=== PATIENT | female | born 1960 | race Caucasian/White ===

== ENCOUNTER 2016-11-20 15:30 | Emergency (ER) | payer OTHER ==
--- NOTE | 2016-11-20 15:52 | PDOC ---
Dyspnea HPI - General Chief Complaint: Dyspnea Stated Complaint: SHORTNESS OF BREATH Date Seen by Provider: 11/20/16 Time Seen by Provider: 15:48 Source: POSITIVE: Patient Exam Limitations: POSITIVE: No limitations Treatment Prior to Arrival: REPORTS: None Nurse's Notes Reviewed & Considered: Yes - History of Present Illness Initial Comments: Corina is a 56-year-old female with a history of emphysema who presents to the emergency department with swelling in her legs. States that this has been going on for 1 week. Right side is somewhat bigger than the left side. Patient reports pain predominantly in the left leg. Patient also describes dyspnea. She does have orthopnea. She has had a cough over the last week. The cough is predominantly nonproductive. Patient reports that she does take her Lasix. She is not sure she's ever been diagnosed with heart failure in the past. No fevers or chills. She describes the chest discomfort as central chest. Pressure-like. The neck for the last 2-3 days. No specific exacerbating or relieving factors. Mild in severity. - Patient Home Medications Home Medications: Home Medications Albuterol Neb Soln 0.083% 1 vial NEB QID #360 vial 12/18/15 Albuterol Sulfate [Proair Hfa] 1 - 2 inh INH QID PRN #3 each 12/18/15 Estrogens, Conjugated Tab [Premarin Tab] 1 tab PO DAILY #90 tab 12/18/15 Fluoxetine HCl 1 cap PO QD #90 cap 12/18/15 Formoterol Fumarate [Perforomist] 1 vial NEB BID #180 vial 12/18/15 Furosemide 1 tab PO BID #180 tab 12/18/15 Lisinopril 1 tab PO DAILY #90 tab 12/18/15 Montelukast Sodium 1 tab PO QHS #90 tab 12/18/15 Potassium Chloride 1 tab PO BID #180 tab 12/18/15 Simvastatin [Zocor] 1 tab PO QHS PRN #90 tab 12/18/15 Oxycodone HCl/Acetaminophen [Oxycodone-Acetaminophen 10-325] 1 tab PO 5XD #150 tab 08/11/16 Lorazepam 1 tab PO TID PRN #90 tab 09/29/16 Gabapentin 300 mg PO TID #270 cap 10/30/16 Ibuprofen 800 mg PO TID #90 tab 10/30/16 Azithromycin 250 mg PO DAILY #4 tab 11/20/16 - Patient Allergies Allergies/Adverse Reactions: Allergies Allergy/AdvReac Type Severity Reaction Status Date / Time aspirin [Aspirin] Allergy Severe ANAPHLAXIS Verified 11/20/16 15:42 codeine [Codeine] Allergy Severe HIVES Verified 11/20/16 15:42 amoxicillin Allergy Intermediate SWELLING Verified 11/20/16 15:42 iodine [Iodine] Allergy Intermediate HIVES Verified 11/20/16 15:42 doxycycline AdvReac Intermediate nausea Verified 11/20/16 15:42 PAIN CONTRACT AdvReac Intermediate NOT Uncoded 11/20/16 15:42 APPLICABLE Past Medical History - heen HEENT History: Denies History Cardiovascular History: Hyperlipidemia Respiratory History: COPD, Emphysema, Sleep Apnea, Home Oxygen Use, Home CPAP Use Additional Respiratory History: HX OF PULMONARY EDEMA Gastrointestinal History: GERD Additional Gastrointestinal History: BARRETTS ESOPHAGUS/ DYSPHAGIA/ ACUTE GASTRIC ULCER Genitourinary History: Denies History Additional Genitourinary History: Bladder repair Endocrine History: Denies History Additional Endocrine History: Possible DM Musculoskeletal History: Other (please comment) Prosthesis or Implant: No Additional Musculoskeletal History: CHRONIC BACK PAIN/ PAIN CONTRACT. RESTLESS LEG SYND Neurological History: Denies History Blood Disorders: Anemia Psychiatric History: Anixety Disorders History of Sexually Transmitted Diseases: No Female Reproductive History: Denies History Cancer History: Denies History In Past Year Been Physically Harmed or Verbally Threatened: No History of MDRO: No History of Other Communicable Diseases: Yes (states she has chronic strep) Tobacco Use: Current Every Day Smoker Alcohol Use: None Substance Use Type: None Previous Surgical History: Yes Type / Date of Surgery: ABD WALL HERNIA/ APPY/ BRONCHOSCOPY, SEVERAL/ C SECTION / EGD, EGD WITH DILATION/ BREAST SX/ TUMMY TUCK Anesthesia Reactions: No Malignant Hyperthermia: No Significant Family History: Heart disease, Cancer, Diabetes Past Medical History Reviewed: Reviewed - No Changes ROS - Limitations ROS Limitations: No Limitations Constitution: DENIES: Chills, Fever Cardiovascular: REPORTS: Chest Pain, Edema Respiratory: REPORTS: Cough Non Productive, Shortness Of Breath Neurological: REPORTS: Denies Neuro Symptoms Gastrointestinal: REPORTS: Denies GI Symptoms Endocrine: REPORTS: Denies Symptoms Musculoskeletal: REPORTS: Calf Pain Genitourinary: REPORTS: Denies Symptoms Eyes: REPORTS: Denies Symptoms ENT: REPORTS: Denies Symptoms Skin: REPORTS: Denies Skin Symptoms Lympathic: REPORTS: Denies Lympathic Symptoms Immunologic: POSITIVE: Denies Symptoms Psychiatric: POSITIVE: Denies Psych Symptoms Dyspnea Physical Exam - General Appearance General Appearance: REPORTS: Alert, Cooperative, Other (Mild dyspnea) - HEENT HEENT: POSITIVE: Head Inspection Nml, Eyes Inspection Nml, Ears Inspection Nml, Nose Inspection Nml, Oral/Dental Inspect. Nml - Neck Neck: DENIES: JVD Present - Respiratory Respiratory: REPORTS: Other (Rough crackles throughout lungs. No foster wheezes. Breath sounds equal.) - Cardiovascular Cardiovascular: REPORTS: Regular Rate and Rhythm, Heart Sounds Normal - Abdomen Abdomen: Soft: (All Quadrants), Normal Bowel Sounds: (All Quadrants), Denies Tenderness: (All Quadrants), No Splenomegaly: (All Quadrants), No Hepatomegaly: (All Quadrants) - Skin Skin: REPORTS: Warm, Dry - Extremities Extremity: Non-Tender: (RLE), Normal ROM: (RLE), (LLE), Edema / Swelling: (RLE) , (LLE), Calf Tenderness: (LLE) - Neurological / Psychological Neurological: POSITIVE: Affect Apporpriate, Oriented X3 Dyspnea Progress - Results Reviewed by me Xrays/CTs/US Reviewed by me: Yes Lab Results Reviewed: Yes Lab Results:: Laboratory Results 11/20/16 Range/Units 15:56 WBC 9.99 (4.8-10.8) 10^3/uL RBC 3.66 L (4.20-5.40) 10^6/uL Hgb 10.6 L (12.0-16.0) g/dL Hct 35.0 L (37.0-47.0) % MCV 95.6 (81-99) FL MCH 29.0 (27-31) PG MCHC 30.3 L (33-37) g/dL RDW Std Deviation 44.9 (39-50) fL RDW Coeff of Tana 13.4 (11.5-14.5) % Plt Count 407 H (140-350) 10*3/uL MPV 9.2 (7.4-12.2) FL Immature Gran % (Auto) 0.3 (0-5) % Neut % (Auto) 70.5 (50-80) % Lymph % (Auto) 20.2 (10-50) % [place] % (Auto) 6.0 (5-15) % Eos % (Auto) 2.7 (0-8) % Baso % (Auto) 0.3 (0-1) % Immature Gran # (Auto) 0.03 10*3/UL Neut # (Auto) 7.04 10*3/UL Lymph # (Auto) 2.02 10*3/uL [place] # (Auto) 0.60 (0.3-0.8) 10*3/UL Eos # (Auto) 0.27 10*3/UL Baso # (Auto) 0.03 10*3/UL WBC Morphology Comment Normal morphology (NORM) Plt Morphology Comment Normal morphology (NORM) RBC Morph Comment Normal morphology (NORM) Sodium 138 (135-145) meq/L Potassium 3.5 L (3.8-5.2) meq/L Chloride 90 L (98-112) meq/L Carbon Dioxide 42 H (23-33) meq/L Anion Gap 6 (5-20) BUN 13 (7-22) mg/dL Creatinine 0.6 (0.50-1.20) mg/dL Estimated GFR > 60 (>60 ml/min/1.73m(2)) BUN/Creatinine Ratio 21.66 H (6-20) Glucose 84 (78-110) mg/dL Calculated Osmolality 284.0 (267-292) mOsm/kg Calcium 9.1 (8.7-10.7) mg/dL Total Bilirubin 0.6 (0.3-1.2) mg/dL AST 13 (8-39) IU/L ALT 22 (9-52) IU/L Alkaline Phosphatase 103 (38-126) IU/L Troponin I < 0.012 (< 0.040) ng/mL NT-Pro-B Natriuret Pep 882 H (0-125) PG/ML Total Protein 7.4 (6.1-8.0) g/dL Albumin 3.3 L (3.5-4.8) g/dL Globulin 4.1 (2.50-4.10) g/dL Albumin/Globulin Ratio 0.80 L (1.3-2.0) mg/g EKG Interpreted/Reviewed By Me:: Yes (Similar morphology to prior. isolated ST elevation in lead III) - Patient's Progress Status: POSITIVE: Improved MDM / ED Course: Patient is a 56 y/o female who presents with edema in the legs. Vitals are unremarkable. Examination demonstrates edema in the lower extremities with coarse lung sounds. Differential diagnosis includes but is not limited to COPD exacerbation, lung cancer, DVT, heart failure, renal failure. Labs are notable for elevation in BNP, which is higher than before. EKG is similar to prior and troponin is negative, making ACS less likely. CXR was abnormal which does appears to show an enlarging mass that is concerning for neoplasm. There is possible a infectious aspect as well, though WBC is in the normal range. I did discuss with patient possibly staying in the hospital for evaluation, she prefers to be discharged home at this time. Will have her follow up closely with her primary care provider. She was treated here with 80mg lasix and azithromycin. Patient Care Time - Estimated PCT Patient Care Time (In Minutes): 35 Vital Signs - Recent Vital Signs Vital Signs: Vital Signs (Last 8 hours) Temp Pulse Resp BP Pulse Ox 11/20/16 15:45 97.1 F 65 28 H 136/78 94 Discharge Clinical Impression: Edema, Lung mass Discharge Disposition: Discharged to Home Condition: Good Prescriptions / Orders: Azithromycin 250 mg PO DAILY #4 tab Patient Instructions Given at Discharge: Emphysema (ED), Edema (ED) Additional Instructions: Thank you for coming to the emergency department. Please follow up with your primary care provider for re-evaluation of what appears like a lung mass. We discussed admitting you to the hospital but would prefer to go home, if you have any worsening symptoms please return to the emergency department. Please try to keep your legs elevated. Take antibiotics as prescribed. Follow Up With: BRENDA WADSWORTH [Primary Care Provider] -
[2016-11-20] MEDS: NORMAL SALINE 10 ML SYRINGE FLUSH IVP PRN ×2 (15:56→18:02)
[2016-11-20 16:01] VITALS: TEMP 97.1
[2016-11-20 16:03] LABS: BASOPHILS # (AUTO) 0.03 10*3/UL; BASOPHILS % (AUTO) 0.3 % (0-1); EOSINOPHILS % (AUTO) 2.7 % (0-8); HEMOGLOBIN 10.6 g/dL (12.0-16.0); IMM GRAN % (AUTO) 0.3 % (0-5); IMM GRAN# (AUTO) 0.03 10*3/UL; LYMPHOCYTES # (AUTO) 2.02 10*3/uL; LYMPHOCYTES % (AUTO) 20.2 % (10-50); MEAN CORPUSCULAR HGB CONC 30.3 g/dL (33-37); MEAN PLATELET VOLUME 9.2 FL (7.4-12.2); NEUTROPHILS # (AUTO) 7.04 10*3/UL; NEUTROPHILS % (AUTO) 70.5 % (50-80); RDW COEFFICIENT OF VARIATION 13.4 % (11.5-14.5); RED BLOOD COUNT 3.66 10^6/uL (4.20-5.40); WHITE BLOOD COUNT 9.99 10^3/uL (4.8-10.8)
[2016-11-20 16:04] LABS: PLATELET MORPHOLOGY COMMENT NORMAL MORPHOLOGY (NORM)
[2016-11-20 16:13] LABS: ASPARTATE AMINO TRANSFERASE 13 IU/L (8-39); BILIRUBIN,TOTAL 0.6 mg/dL (0.3-1.2); BLOOD UREA NITROGEN 13 mg/dL (7-22); BUN/CREATININE RATIO 21.66 (6-20); CALCIUM 9.1 mg/dL (8.7-10.7); CHLORIDE 90 meq/L (98-112); CREATININE 0.6 mg/dL (0.50-1.20); EST GLOMERULAR FILTRATION > 60 (>60 ml/min/1.73m(2)); GLUCOSE 84 mg/dL (78-110); POTASSIUM 3.5 meq/L (3.8-5.2); SODIUM 138 meq/L (135-145); TOTAL PROTEIN 7.4 g/dL (6.1-8.0)
[2016-11-20 16:22] LABS: NT-PRO BNP 882 PG/ML (0-125)
--- NOTE | 2016-11-20 16:45 | DI ---
History: Chest pain and dyspnea. Procedure: 2 view study. Prior examination, chest CT done 06/24/16. Findings: Findings are again consistent with an element of emphysema. There are some bulla in the lef t lung base and possible fluid accumulation with blunting of the costophrenic angle. Heart size is to p normal. There is an ill-defined area of increased density in the right lung base involving mostly the middle lobe, obscuring the right cardiac border with some nodular component progressing at the costophrenic angle laterally. Lateral view shows bony structures are intact. Impression: Some progression of the infiltrative process in the right side which may be a combination of infectious process and neoplasia. The infiltration in the right lung base has progressed and may represent adenocarcinoma. Consider bronchoscopy or repeat CT scan of the chest. There is also an element of emphysema present with probable small left pleural effusion
--- NOTE | 2016-11-20 17:01 | EKG ---
[address] [address] Measurements Intervals [place] Rate: 63 P: 1 [place]: 171 QRS: 111 QRSD: 102 T: 62 QT: 457 QTc: 464 Interpretive Statements SINUS RHYTHM WITH OCCASIONAL SUPRAVENTRICULAR PREMATURE COMPLEXES INCOMPLETE RIGHT BUNDLE BRANCH BLOCK RIGHT VENTRICULAR HYPERTROPHY AND ST-T CHANGE Compared to ECG 08/27/2014 13:14:05 ST (T wave) deviation now present T-wave abnormality no longer present Possible ischemia no longer present Electronically Signed On 11-21-16 14:39:44 MST by Taye Moss [id number]
--- NOTE | 2016-11-20 17:38 | DI ---
HISTORY: Edema and pain. History of COPD. COMPARISON: None available. TECHNIQUE: Venous sonographic images were obtained of the bilateral lower extremities and submitted for interpretation. FINDINGS: No evidence of venous thrombus in the bilateral lower extremity veins in the imaged field. IMPRESSION: 1. No evidence of venous thrombus in the bilateral lower extremity veins in the imaged field. NOTE: The interpreting Radiologist was not present at the time of ultrasound interrogation.
[2016-11-20] MEDS ORDERED: FUROSEMIDE 10 MG/1 ML - 4 ML IVP ONE (17:39)
[2016-11-20] MEDS ORDERED: AZITHROMYCIN 250 MG TABLET PO ONE (17:39)
[2016-11-20 18:13] VITALS: RESP 22
== END 2016-11-20 18:14 | disposition home or self-care (01) ==
LOC: ER 15:30
DX: R60.9 Edema, unspecified (principal); R91.8 Other nonspecific abnormal finding of lung field; R07.9 Chest pain, unspecified
CPT/HCPCS: 71020; 80053; 83880; 84484; 85025; 93005; 93010; 93970; 96374; 99284; J1940

== ENCOUNTER → 2016-12-26 | Outpatient (CLI) | payer OTHER ==
--- NOTE | 2016-12-26 17:02 | DI ---
CT CHEST W/O CONTRAST,12/26/2016 1:06 PM: Clinical History: Pulmonary nodule Previous Exam: June 24, 2016 Findings: Multiple helically acquired CT images are obtained through the chest without contrast, and demonstrat e some worsening COPD bilaterally. The 5 mm nodule seen on the prior exam within the left lower lobe posteriorly is unchanged from the p rior exam. The airspace disease seen within the right middle lobe is slightly less conspicuous, but there is sti ll some airspace disease with air bronchograms in the right middle lobe. The lung apices demonstrates some worsening scarring as do the lung bases. There is still some enlargement of the pulmonary arteries and multiple coronary artery calcifications . The upper abdomen is unremarkable and unchanged from the prior exam. The thyroid is unremarkable. Impression: Airspace disease within the right middle lobe essentially unchanged, but given the fact that this pat ient appears to be at high risk, recommend continued followup as a mass within the atelectasis in the right middle lobe cannot completely excluded. PET scan may be helpful to evaluate the presence or ab sence of a right middle lobe mass. Diffuse COPD.
== END ==
LOC: CT 13:04
PROVIDERS: ATTEND Internal Medicine
DX: R91.1 Solitary pulmonary nodule (principal); J44.9 Chronic obstructive pulmonary disease, unspecified
CPT/HCPCS: 71250

== ENCOUNTER → 2017-03-09 | Outpatient (CLI) | payer OTHER ==
[2017-03-09 17:20] LABS: BASOPHILS # (AUTO) 0.03 10*3/UL; BASOPHILS % (AUTO) 0.3 % (0-1); EOSINOPHILS # (AUTO) 0.36 10*3/UL; EOSINOPHILS % (AUTO) 3.4 % (0-8); HEMOGLOBIN 14.5 g/dL (12.0-16.0); LYMPHOCYTES # (AUTO) 3.19 10*3/uL; MEAN CORPUSCULAR HEMOGLOBIN 28.8 PG (27-31); MEAN CORPUSCULAR HGB CONC 30.9 g/dL (33-37); MEAN CORPUSCULAR VOLUME 93.3 FL (81-99); MEAN PLATELET VOLUME 10.5 FL (7.4-12.2); MONOCYTES % (AUTO) 6.6 % (5-15); NEUTROPHILS # (AUTO) 6.23 10*3/UL; NEUTROPHILS % (AUTO) 59.2 % (50-80); RED BLOOD COUNT 5.04 10^6/uL (4.20-5.40)
[2017-03-09 17:22] LABS: PLATELET MORPHOLOGY COMMENT NORMAL MORPHOLOGY (NORM); RBC MORPHOLOGY COMMENT NORMAL MORPHOLOGY (NORM); WBC MORPHOLOGY COMMENT NORMAL MORPHOLOGY (NORM)
[2017-03-09 17:28] LABS: BLOOD UREA NITROGEN 18 mg/dL (7-22); CALCIUM 9.2 mg/dL (8.7-10.7); EST GLOMERULAR FILTRATION > 60 (>60 ml/min/1.73m(2)); SERUM ALBUMIN 3.9 g/dL (3.5-4.8)
--- NOTE | 2017-03-10 09:37 | DI ---
XR CXR 2VW PA/LAT,03/09/2017 4:02 PM: Clinical History: Congestive heart failure. Previous Exam: November 20, 2016 Findings: PA and lateral views of the chest are obtained, and demonstrate diffuse osteopenia.. There is a left pleural effusion. There is a large right parahilar mass. Increased interstitial markings are noted. There is prominence of the aortic knob. Impression: 1. Left pleural effusion. 2. Prominent right perihilar mass unchanged from the prior exam. 3. Stable prominence of the aortic knob.
== END ==
LOC: MOB LAB 16:05
PROVIDERS: ATTEND Internal Medicine
DX: I50.42 Chronic combined systolic (congestive) and diastolic (congestive) heart failure (principal); J44.1 Chronic obstructive pulmonary disease with (acute) exacerbation; F17.200 Nicotine dependence, unspecified, uncomplicated
CPT/HCPCS: 36415; 71020; 80053; 83880; 85025

== ENCOUNTER → 2017-07-02 | Outpatient (CLI) | payer OTHER ==
--- NOTE | 2017-07-02 20:58 | DI ---
CT CHEST SCAN WITHOUT IV CONTRAST, 07/02/2017 2:25 PM : Clinical History: Right pulmonary nodule. Previous Exam: None at this facility. Scans are performed from the base of the neck to the lower lung bases without IV contrast. Sagittal a nd coronal images using non MIPS and MIPS technique are generated. The base of the neck and thoracic inlet are normal. There are no abnormal axillary, supraclavicular, mediastinal, or hilar nodes. The heart is normal. Coronary artery calcifications are present in the r ight coronary artery, the proximal and middle thirds of the LAD, and the proximal portion of the left circumflex artery. The aorta is of normal caliber but there is marked pulmonary to real hypertension and the pulmonary artery is almost 2.5-3.0 times the caliber of the aorta. There is almost complete collapse of the right middle lobe with associated bullae. There is marked volume loss in the right up per lobe and there is compensatory hyperinflation of the right lower lobe so that it occupies probabl y 3/4 the volume of the the right thorax. On the left side, there is marked volume loss in the lingul ar segment and the left lower lobe with marked compensatory hyperinflation of the left upper lobe. Th e left upper lobe occupies 3/4 of the volume of the left thorax. There are multiple calcified granulo wahl bilaterally. The lesion in the left lower lobe that measures 5 mm has remained stable and has th e appearance of an inflammatory nodule. Both adrenal glands and the visualized portions of the liver, pancreas, and spleen are normal. READIN. The left lower lobe nodule of question has remained stable and has the appearance of a flat infla mmatory lesion rather than a round nodular lesion. There are multiple bilateral calcified pulmonary n odules consistent with granulomata and these have not changed. No further followup of these nodules i s required. 2. Bullous emphysema with almost complete atelectasis of the right middle lobe and significant volum e loss in the right upper lobe, the lingular segment, in the left lower lobe. There has been compensa tory hyperinflation of the right lower lobe and of the left upper lobe so that each of these lobes oc cupy three fourths of the volume of the respective thorax. 3. Marked pulmonary arterial hypertension.
== END ==
LOC: CT 14:17
PROVIDERS: ATTEND Internal Medicine
DX: R91.1 Solitary pulmonary nodule (principal); I27.2 Other secondary pulmonary hypertension; J43.9 Emphysema, unspecified; Z72.0 Tobacco use
CPT/HCPCS: 71250

== ENCOUNTER 2017-11-17 13:14 | Inpatient (IN) ==
[~2017-11-17 13:14] MED LIST: IPRATROPIUM/ALBUTEROL SULFATE 3 ML NEB NEB ONE
[2017-11-17] MEDS ORDERED: NORMAL SALINE 10 ML SYRINGE FLUSH IVP PRN (13:31)
[2017-11-17] MEDS ORDERED: Sodium Chloride 0.9% 1,000 ML PRIMARY IV ONE (13:31)
[2017-11-17 13:41] LABS: BASOPHILS # (AUTO) 0.02 10*3/UL; BASOPHILS % (AUTO) 0.2 % (0-1); EOSINOPHILS # (AUTO) 0.07 10*3/UL; EOSINOPHILS % (AUTO) 0.7 % (0-8); Hematocrit [HCT] 43.4 % (37.0-47.0); Hemoglobin [HGB] 13.1 g/dL (12.0-16.0); LYMPHOCYTES # (AUTO) 1.86 10*3/uL; MEAN CORPUSCULAR HEMOGLOBIN 28.8 PG (27-31); MEAN CORPUSCULAR HGB CONC 30.2 g/dL (33-37); MEAN CORPUSCULAR VOLUME 95.4 FL (81-99); MEAN PLATELET VOLUME 10.5 FL (7.4-12.2); MONOCYTES # (AUTO) 0.58 10*3/UL (0.3-0.8); MONOCYTES % (AUTO) 5.4 % (5-15); NEUTROPHILS # (AUTO) 8.22 10*3/UL; NEUTROPHILS % (AUTO) 76.3 % (50-80); RED BLOOD COUNT 4.55 10^6/uL (4.20-5.40)
[2017-11-17 13:43] LABS: PLATELET MORPHOLOGY COMMENT NORMAL MORPHOLOGY (NORM); RBC MORPHOLOGY COMMENT NORMAL MORPHOLOGY (NORM); WBC MORPHOLOGY COMMENT NORMAL MORPHOLOGY (NORM)
[2017-11-17 13:49] LABS: BLOOD UREA NITROGEN 10 mg/dL (7-22); SERUM ALBUMIN 3.7 g/dL (3.5-4.8)
[2017-11-17 13:53] LABS: VENOUS PH 7.46 (7.32-7.42)
--- NOTE | 2017-11-17 14:10 | EKG ---
[address] [place] [address] Measurements Intervals [place] Rate: 67 P: 70 [place]: 181 QRS: 106 QRSD: 108 T: 64 QT: 400 QTc: 415 Interpretive Statements SINUS RHYTHM LEFT ATRIAL ENLARGEMENT [-0.15mV P WAVE IN V1/V2] INCOMPLETE RIGHT BUNDLE BRANCH BLOCK [90+ ms QRS DURATION, TERMINAL R IN V1/V2, 40+ ms S IN I/aVL/V4/V5/V6] RIGHT VENTRICULAR HYPERTROPHY AND ST-T CHANGE [SOME/ALL OF: PROMINENT R IN V1, LATE TRANSITION, RAD, PARDEEP, SSS, RIGHT PRECORDIAL Compared to ECG 11/20/2016 16:00:32 Atrial abnormality now present ST (T wave) deviation still present Electronically Signed On 11-17-17 14:47:42 MST by Simone Palacios MD [id number]
[2017-11-17] MEDS ORDERED: IPRATROPIUM/ALBUTEROL SULFATE 3 ML NEB NEB ONE (15:34)
[2017-11-17 15:48] LABS: VENOUS PH 7.47 (7.32-7.42)
[2017-11-17] MEDS ORDERED: LORazepam 2 MG/1 ML VIAL IVP ONE (15:56)
[2017-11-17] MEDS ORDERED: LORazepam 2 MG/1 ML VIAL ONE (16:00)
[2017-11-17] MEDS ORDERED: ONDANSETRON 4 MG/2 ML VIAL IVP ONE (16:55)
[2017-11-17] MEDS ORDERED: diphenhydrAMINE 25 MG CAPSULE PO ONE ×2 (17:00→17:08)
[2017-11-17] MEDS ORDERED: LIDOCAINE W/ SODIUM BICARB 0.5 ML SYR SUBD PRN (17:05)
[2017-11-17] MEDS ORDERED: Simvastatin Tab 40 MG TAB PO PRN (17:05)
[2017-11-17] MEDS ORDERED: ONDANSETRON 4 MG/2 ML VIAL IVP PRN (17:05)
[2017-11-17] MEDS ORDERED: DOCUSATE 100 MG CAPSULE PO PRN (17:05)
[2017-11-17] MEDS ORDERED: ACETAMINOPHEN 325 MG TABLET PO PRN (17:05)
[2017-11-17] MEDS ORDERED: CALCIUM CARBONATE 500 MG (TUMS) CHEWABLE TABLET PO PRN (17:05)
[2017-11-17] MEDS: methylPREDNISolone 125 MG/2 ML VIAL IVP SCH ×2 (17:27→22:04)
--- NOTE | 2017-11-17 17:39 | DI ---
AP/LATERAL CHEST X-RAY, 11/17/2017 1:31 PM : Clinical History: Dyspnea. Cough. Previous Exam: 03/09/2017 There is no acute soft tissue or bony abnormality. There is mild cardiomegaly. CHF is felt not to be present. Bullae are present in the left lower lobe, and there is centrilobular emphysema. No acute in filtrate or effusion is present. There is severe pulmonary arterial hypertension. Small punctate calc ifications are present bilaterally consistent with old granulomatous disease and this pattern has not changed. Readin. Centrilobular emphysema with bullae. There is severe pulmonary arterial hypertension. 2. Old granulomatous disease.
[2017-11-17] MEDS ORDERED: POTASSIUM CHLORIDE 20 MEQ TAB PO ONE (18:01)
[2017-11-17] MEDS ORDERED: Magnesium Sulfate 2gm (Premix) 2 GM/50 ML BAG IV ONE (18:03)
--- NOTE | 2017-11-17 18:24 | DI ---
CT ANGIOGRAM OF THE CHEST, 11/17/2017 5:11 PM : Clinical History: Cough. Shortness of breath. Previous Exam: None at this facility. Scans are performed from the base of the neck to the lower lung bases following IV administration of 70 mL of Isovue 300. The patient did indicate generalized swelling following IV contrast injection ma ny years prior. The patient was premedicated with steroids and Benadryl IV attending hospitalist. [employer] automated bolus tracking software was used to verify the timing of the injection. The patien t tolerated the procedure without untoward effect. The base of the neck and thoracic inlet are normal. There are no abnormal axillary, supraclavicular, mediastinal, or hilar nodes. There is cardiomegaly with marked enlargement of the right atrium and ri ght ventricle. Both of these chambers are larger than the left ventricle. Coronary artery calcificati ons are present in the middle third of the LAD and in the proximal left circumflex artery. There is s evere pulmonary arterial hypertension without evidence of pulmonary embolism or pulmonary embolism wi th infarction. Bullae are present in the right upper lobe and right middle lobe as well as in the lef t lower lobe. There is volume loss of the right middle lobe consistent with postinflammatory scarring . No acute infiltrate or effusion is present. There is pleural thickening on the left side near the l eft lower lobe. Multiple small punctate calcifications are present bilaterally ranging in size betwee n 3-4 mm in diameter consistent with old granulomatous disease. Both adrenal glands and the spleen ar e normal. There is retrograde flow of contrast into multiple right and left hepatic veins indicating tricuspid insufficiency. The inferior vena cava is dilated and the caliber is twice the size of the a coty. READIN. There is no evidence of pulmonary embolism or pulmonary embolism with pulmonary infarction. There is marked pulmonary arterial hypertension with marked dilatation of the right atrium and right ventr icle. There is evidence of tricuspid insufficiency and marked dilatation of the IVC. 2. Bullous emphysema with chronic scarring of the right middle lobe and left pleural thickening. The re is underlying coronary artery disease manifested by calcifications in the middle third of the LAD and a few calcifications in the proximal portion of the left circumflex artery.
[2017-11-17] MEDS: cefTRIAXone Inj 2 GM in Sodium Chloride 0.9% 100 ML IV SCH (18:36)
[2017-11-17] MEDS: oxyCODONE/APAP 10/325 Tab 1 EACH TAB PO SCH ×2 (18:42→21:08)
[2017-11-17 19:29] LABS: VENOUS PH 7.46 (7.32-7.42)
[2017-11-17] MEDS: GABAPENTIN 300 MG CAPSULE PO SCH (20:23)
[2017-11-17] MEDS: Montelukast Tab 10 MG TAB PO SCH (20:23)
[2017-11-17] MEDS: POTASSIUM CHLORIDE 20 MEQ TAB PO SCH (20:23)
--- NOTE | 2017-11-17 20:46 | PDOC ---
Dyspnea HPI - General Chief Complaint: Dyspnea Stated Complaint: SOB Date Seen by Provider: 11/17/17 Time Seen by Provider: 13:17 Source: POSITIVE: Patient, Other (Brother) Exam Limitations: POSITIVE: No limitations Treatment Prior to Arrival: REPORTS: Oxygen Nurse's Notes Reviewed & Considered: Yes - History of Present Illness Initial Comments: The patient is a 57-year-old female. Patient has a long-standing history of COPD, oxygen dependent. She states that she is normally on 4 L/m of oxygen continuously and gives herself albuterol nebulizer treatments 4 times daily. She is on CPAP at night. Patient states that for the past 24 hours she has had an increase in her dyspnea with some associated chest discomfort. Patient states she has had an increased cough, which is productive of "green sputum". She continues to smoke half a pack of cigarettes per day. Body Location Affected: REPORTS: Chest Timing: REPORTS: Constant, Getting Worse Duration: >24 hours Severity: Moderate Quality: REPORTS: Other (Mild chest discomfort) Initiating Event: DENIES: Upper Respiratory Illness, Out of Medications, Sports , Exercise, Aspiration, Choking, Allergy, Exposure - Smoke, Exposure - Mold, Exposure - Other Allergen Context: REPORTS: Rest Exacerbated By: REPORTS: Coughing Associated Symptoms: REPORTS: Productive Cough (Productive of "green" sputum). DENIES: Fever, Chills, Sweating, Chest Pain, Chest Discomfort, Left Chest, Right Chest, Central Chest, Chest Heaviness, Chest Tightness, Painful Breathing , Radiation to Back, Radiation to Jaw, Radiation to Arm, Bloody Cough, Heart Racing, Leg Pain, Calf Pain, Ankle Swelling, Leg Swelling, Dizziness, Light- Headedness, Anxiety, Tingling - Hands, Tingling - Face, Muscle Spasms - Hands, Muscle Spasms - Feet Similar Symptoms Previously: Yes Recently seen/treated/hospitalized: No Any Prior Injuries Related to Current Complaint?: No - Patient Home Medications Home Medications: Home Medications Albuterol Sulfate 1 vial NEB QID #360 vial 12/10/16 Albuterol Sulfate [Proair Hfa] 1 - 2 inh INH QID PRN #3 ea 12/10/16 Formoterol Fumarate [Perforomist] 1 vial NEB BID #180 vial 12/10/16 lorazepam 1 mg tablet 1 mg PO TID PRN #90 tab 08/07/17 ibuprofen 800 mg tablet 800 mg PO TID #90 tab 08/20/17 conjugated estrogens 0.625 mg tablet 0.625 mg PO QDAY #90 tab 10/05/17 fluoxetine 40 mg capsule 40 mg PO QDAY #90 cap 10/05/17 fluticasone 250 mcg-salmeterol 50 mcg/dose blistr powdr for inhalation 1 inh INH Q12H 10/05/17 furosemide 80 mg tablet 80 mg PO BID #180 tab 10/05/17 gabapentin 300 mg capsule 300 mg PO TID #270 cap 10/05/17 lisinopril 10 mg tablet 10 mg PO QDAY #90 tab 10/05/17 montelukast 10 mg tablet 10 mg PO QHS #90 tab 10/05/17 oxycodone-acetaminophen 10 mg-325 mg tablet 1 tab PO 5XD #150 tab 10/05/17 potassium chloride ER 20 mEq tablet,extended release(part/cryst) 20 meq PO BID # 180 tab 10/05/17 simvastatin 40 mg tablet 40 mg PO QHS PRN #90 tab 10/05/17 tiotropium bromide 18 mcg capsule with inhalation device 1 cap INH QDAY - Patient Allergies Allergies/Adverse Reactions: Allergies 3 Allergy/AdvReac Type Severity Reaction Status Date / Time aspirin [Aspirin] Allergy Severe ANAPHLAXIS Verified 11/17/17 13:36 codeine [Codeine] Allergy Severe HIVES Verified 11/17/17 13:36 amoxicillin Allergy Intermediate SWELLING Verified 11/17/17 13:36 iodine [Iodine] Allergy Intermediate HIVES Verified 11/17/17 13:36 doxycycline AdvReac Intermediate nausea Verified 11/17/17 13:36 PAIN CONTRACT AdvReac Intermediate NOT Uncoded 11/17/17 13:36 APPLICABLE Past Medical History - heen HEENT History: Denies History Cardiovascular History: Hyperlipidemia Respiratory History: COPD, Sleep Apnea, Home Oxygen Use, Home CPAP Use, Home CPAP Use Additional Respiratory History: HX OF PULMONARY EDEMA Gastrointestinal History: GERD Additional Gastrointestinal History: BARRETTS ESOPHAGUS/ DYSPHAGIA/ ACUTE GASTRIC ULCER Genitourinary History: Denies History Additional Genitourinary History: Bladder repair Endocrine History: Denies History Additional Endocrine History: Possible DM Musculoskeletal History: Other (please comment) Prosthesis or Implant: No Additional Musculoskeletal History: CHRONIC BACK PAIN/ PAIN CONTRACT. RESTLESS LEG SYND Neurological History: Denies History Blood Disorders: Anemia Psychiatric History: Anxiety Disorders History of Sexually Transmitted Diseases: No Female Reproductive History: Denies History LMP: unknown Obstetrical History: Denies History Cancer History: Denies History In Past Year Been Physically Harmed or Verbally Threatened: No History of MDRO: No History of Other Communicable Diseases: Yes (states she has chronic strep) Tobacco Use: Current Every Day Smoker Alcohol Use: None In the Past 12 Months, Have Used or Abuse Any Substance: None Previous Surgical History: Yes Type / Date of Surgery: ABD WALL HERNIA/ APPY/ BRONCHOSCOPY, SEVERAL/ C SECTION / EGD, EGD WITH DILATION/ BREAST SX/ TUMMY TUCK Anesthesia Reactions: No Malignant Hyperthermia: No Significant Family History: Heart disease, Cancer, Diabetes Past Medical History Reviewed: Reviewed - No Changes ROS - Limitations ROS Limitations: No Limitations Constitution: REPORTS: Denies Symptoms Cardiovascular: REPORTS: Chest Pain Respiratory: REPORTS: Cough Productive, Shortness Of Breath Neurological: REPORTS: Denies Neuro Symptoms Gastrointestinal: REPORTS: Denies GI Symptoms Endocrine: REPORTS: Denies Symptoms Musculoskeletal: REPORTS: Denies MS Symptoms Genitourinary: REPORTS: Denies Symptoms Eyes: REPORTS: Denies Symptoms ENT: REPORTS: Denies Symptoms Skin: REPORTS: Denies Skin Symptoms Lympathic: REPORTS: Denies Lympathic Symptoms Immunologic: POSITIVE: Denies Symptoms Psychiatric: POSITIVE: Denies Psych Symptoms Dyspnea Physical Exam - General Appearance General Appearance: REPORTS: Alert, Cooperative, No Acute Distress, No Evidence of Trauma - HEENT HEENT: POSITIVE: Head Inspection Nml, Eyes Inspection Nml, Ears Inspection Nml, Nose Inspection Nml, Oral/Dental Inspect. Nml, Pharynx Inspect. Nml, PERRL, EOMI - Neck Neck: REPORTS: Normal Inspection, No Carotid Bruit - Respiratory Respiratory: REPORTS: No Pleuritic Chest Pain, Speaks Full Sentences, No Pain on Inspiration, Respiratory Distress ([id number]), Wheezes (Diffuse), Rhonchi (Diffuse) - Cardiovascular Cardiovascular: REPORTS: Regular Rate and Rhythm, Heart Sounds Normal, Equal Pulses, Strong Pulses, No Murmur, No Gallop, No Friction Rub, No JVD Peripheral Pulses: Radial (R): 2+, Radial (L): 2+ - Abdomen Abdomen: Soft: (All Quadrants), Normal Bowel Sounds: (All Quadrants), Denies Tenderness: (All Quadrants), No Splenomegaly: (All Quadrants), No Hepatomegaly: (All Quadrants), No Guarding: (All Quadrants), No Rebound: (All Quadrants), No Palpable Pulse: (All Quadrants), No Palpabale Mass: (All Quadrants), No Distention: (All Quadrants), No Rigidity: (All Quadrants) - Skin Skin: REPORTS: Intact, Normal For Race, Warm, Dry, No Rash - Extremities Extremity: Non-Tender: (All Extremities), Normal ROM: (All Extremities), Normal Inspection: (All Extremities) - Neurological / Psychological Neurological: POSITIVE: Affect Apporpriate, 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 Lab Results Reviewed by Me: Yes (troponin negative, d-dimer 1.17, BNP 2070; venous blood gas shows pH 7.46, ) CBC and BMP: 11/17/17 13:10 11/17/17 13:10 EKG Interpreted/Reviewed By Me:: Yes EKG Interpretation:: POSITIVE: Normal Sinus Rhythm, Normal Rate, Normal Intervals, Abnormal EKG (Right ventricular hypertrophy; T-wave inversions V1 through V4 with 1/2-[address] depression). NEGATIVE: Normal [place], Normal QRS, Normal ST/T (T-wave inversion with 1 mm depression in V1 through V4) - Patient's Progress Pain Medication Addressed: POSITIVE: Not Applicable School/Work Release Addressed: POSITIVE: Not Applicable Re-Examine Time: 17:50 Re-Examine Comment: Patient was started on Vapotherm and she maintains her oxygen saturation well with FiO2 of 70. Repeat venous blood gas shows pH 7.467 with PCO2 59.4. Patient states she is allergic to IV contrast, so patient scheduled for VQ scan. Case discussed with hospitalist, and is admitted for further evaluation and treatment. Status: POSITIVE: Improved, Re-Examined Air Movement: POSITIVE: Fair - Consult Consult (If Yes, Name of Consulting MD & Time Called): Yes (Dr. Betancur, hospitalist, 1600) Consulting MD will see pt:: POSITIVE[place] [facility] [place] Counseled: POSITIVE: Patient, RE: Lab Results, RE: Radiology Results, RE: DX, RE : Need for F/U Patient Care Time - Estimated PCT Patient Care Time (In Minutes): 65 Vital Signs - Recent Vital Signs Vital Signs: Vital Signs (Last 8 hours) Temp Pulse Pulse Pulse Resp BP Pulse Ox 11/17/17 20:38 98.0 F 62 20 123/68 95 11/17/17 19:00 92 11/17/17 18:00 96 24 11/17/17 16:11 98 11/17/17 16:01 68 20 100 11/17/17 16:00 68 22 98 11/17/17 14:50 97.8 F 118 H 30 H 148/96 82 11/17/17 14:15 96.6 F L 118 H 118 H 30 H 148/96 82 11/17/17 13:31 97 - VS Reviewed Vital Signs Reviewed: Yes Discharge Clinical Impression: Chronic obstructive lung disease, Elevated d-dimer Discharge Disposition: Admit to Inpatient Condition: Critical Date Decision to Admit to Inpatient: 11/17/17 Time Decision to Admit to Inpatient: 16:00
--- NOTE | 2017-11-17 20:50 | PDOC ---
HPI - History of Present Illness Date of Service: 11/17/17 Time of Service: 17:40 Chief Complaint: Shortness of breath History of Present Illness: This very pleasant 57 year old female with severe pulmonary arterial hypertension, COPD, still smokes, who comes in complaining of shortness of breath of acute onset over the last 24 hours. She states is much worse than her baseline. She has a cough. No fevers or chills. She sees a frit mixer and burner in [place], who has her on Advair and Spiriva. Despite these medications and albuterol therapy, the patient's continuing to have shortness of breath. She denies any chest pain with this. She has nausea and vomiting as well. She states that she had the flu vaccine and she's had the Pneumovax vaccines in the past. She's not sure of anything that's really making her better although her breathing therapy in the emergency room and felt a little bit with shortness of breath. She is very worried about a blood clot. Her d-dimer was elevated, but she said she had remote history of reaction to radiology contrast, but it was several years ago. I discussed with radiology, as I do not think a VQ scan will be very reflective of any pulmonary emboli with some any potential lung issues with her pulmonary hypertension and I proceeded with a CT scan with Solu- Medrol and Benadryl on board. Patient thus far has tolerated the CT scan fine. It was negative for pulmonary emboli. He was significant for severe pulmonary arterial hypertension. She is full code. I spoke with the patient's son, and the patient's brother lives with the patient. She was found slumped over the table and was blue looking by her [id number]. She called the patient's son and he arranged for the patient's brother to take the patient to get to the ER for evaluation. She is normally on 4 L of oxygen, but here is requiring more. Past Medical History Medical History: 1. Severe pulmonary arterial hypertension. 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 3. Depression with anxiety features. 4. Chronic pain syndrome on oxycodone/acetaminophen 5 times daily. 5. Hypercholesterolemia. 6. Tobacco abuse. 7. GERD with Clark's esophagitis. 8. History of ulcer disease. 9. Objective sleep apnea. 10. Tracheobronchomalacia Surgical History: 1. History of EGDs. 2. Appendectomy. 3. Bronchoscopy. 4. Hernia repair. 5. Transverse . 6. History of gastric biopsies. 7. Breast surgery Pertinent Family History: Family history of heart disease Past Social History: Smokes about half a pack per day. No alcohol use. Lives alone. Has children that are described as healthy. Tobacco Use: Current Every Day Smoker Do you dip or chew tobacco: No In the Past 12 Months, Have Used or Abuse Any of the Following Substance: None Alcohol Use: None Medication / Allergies Home Medications: Home Medications Medication Instructions Recorded Confirmed Type Albuterol Sulfate 1 vial NEB QID #360 vial 12/10/16 11/17/17 Rx Albuterol Sulfate [Proair Hfa] 1 - 2 inh INH QID PRN #3 ea 12/10/16 11/17/17 History Formoterol Fumarate [Perforomist] 1 vial NEB BID #180 vial 12/10/16 11/17/17 Rx lorazepam 1 mg tablet 1 mg PO TID PRN #90 tab 08/07/17 11/17/17 Rx ibuprofen 800 mg tablet 800 mg PO TID #90 tab 08/20/17 11/17/17 Rx conjugated estrogens 0.625 mg 0.625 mg PO QDAY #90 tab 10/05/17 11/17/17 Rx tablet fluoxetine 40 mg capsule 40 mg PO QDAY #90 cap 10/05/17 11/17/17 Rx fluticasone 250 mcg-salmeterol 50 1 inh INH Q12H 10/05/17 11/17/17 History mcg/dose blistr powdr for inhalation furosemide 80 mg tablet 80 mg PO BID #180 tab 10/05/17 11/17/17 Rx gabapentin 300 mg capsule 300 mg PO TID #270 cap 10/05/17 11/17/17 Rx lisinopril 10 mg tablet 10 mg PO QDAY #90 tab 10/05/17 11/17/17 Rx montelukast 10 mg tablet 10 mg PO QHS #90 tab 10/05/17 11/17/17 Rx oxycodone-acetaminophen 10 mg-325 1 tab PO 5XD #150 tab 10/05/17 11/17/17 Rx mg tablet potassium chloride ER 20 mEq 20 meq PO BID #180 tab 10/05/17 11/17/17 Rx tablet,extended release(part/cryst) simvastatin 40 mg tablet 40 mg PO QHS PRN #90 tab 10/05/17 11/17/17 History tiotropium bromide 18 mcg capsule 1 cap INH QDAY 10/05/17 11/17/17 History with inhalation device Allergies/Adverse Reactions: Allergies 3 Allergy/AdvReac Type Severity Reaction Status Date / Time aspirin [Aspirin] Allergy Severe ANAPHLAXIS Verified 11/17/17 13:36 codeine [Codeine] Allergy Severe HIVES Verified 11/17/17 13:36 amoxicillin Allergy Intermediate SWELLING Verified 11/17/17 13:36 iodine [Iodine] Allergy Intermediate HIVES Verified 11/17/17 13:36 doxycycline AdvReac Intermediate nausea Verified 11/17/17 13:36 PAIN CONTRACT AdvReac Intermediate NOT Uncoded 11/17/17 13:36 APPLICABLE Review of Systems - Review of Systems All Systems: Reviewed & No Additional Complaints Except as Stated (I did a 12 point review systems and other than that discussed in history present illness the review systems is negative. Exceptions are noted below.) - Gastrointestinal Gastrointestinal / Abdominal: REPORTS: Nausea, Vomiting Exam - Vitals Vital Signs: Vital Signs Temperature 98.0 F Temperature Source Temporal Artery Scan Pulse Rate [Pulse Oximeter] 62 Pulse Rate [Pulse Oximeter 92 Bilateral Radial] Respiratory Rate 20 Blood Pressure [Left Arm] 123/68 Pulse Ox 95 Oxygen Delivery Method Bi-PAP Height 5 ft 3 in Weight 206 lb 3 oz - General Additional General Exam Details: Moderate respiratory distress, patient is only able to get 1-2 word sentences out before taking in of breath on my history. She has to sit totally upright to be able to breathe. - Head Head Exam: Normal Inspection, Normocephalic, Atraumatic - Eye Eye Exam: POSITIVE: No Scleral Icterus - ENT ENT Exam: POSITIVE: Mucous Membranes Moist - Neck Neck Exam: Normal Inspection, No Tenderness, No Lymphadenopathy, No Thyromegaly - Respiratory Respiratory Exam: POSITIVE: Decreased Breath Sounds, Wheezes, Coarse Breath Sounds - Cardiovascular Cardiovascular Exam: POSITIVE: RRR, No Murmur, No Clicks, No Gallops, No Rubs, No JVD - GI/Abdominal GI/Abdominal Exam: POSITIVE: Normal Bowel Sounds, Non Tender, Non Distended, Soft - Rectal Rectal Exam: POSITIVE: Deferred - External Exam: POSITIVE: Deferred Exam: POSITIVE: Deferred - Extremities Extremities Exam: POSITIVE: No Edema Present, No Cyanosis Present, Clubbing Present - Back Back Exam: POSITIVE: No CVA Tenderness - Neurological Neurological Exam: POSITIVE: Alert, Oriented x 3, No Facial Droop, Speech Intact / Clear, Moves All Extremities Equally - Psychiatric Psychiatric Exam: POSITIVE: Normal Affect, Anxious - Central Line Examination Central Line Present on Admission: No Results - Labs CBC and BMP: 11/17/17 13:10 11/17/17 13:10 Additional Lab Results: 11/17/17 11/17/17 11/17/17 13:10 13:10 13:10 VBG pH VBG pCO2 VBG HCO3 VBG Base Excess Calcium 9.8 Magnesium 1.8 Total Bilirubin 0.7 AST 27 ALT 12 Alkaline Phosphatase 133 H Troponin I 0.021 NT-Pro-B Natriuret Pep 2070 H Total Protein 8.1 H Albumin 3.7 Globulin 4.4 H Albumin/Globulin Ratio 0.80 L 11/17/17 19:22 VBG pH 7.46 H VBG pCO2 62 H VBG HCO3 44 H VBG Base Excess 21 H Calcium Magnesium Total Bilirubin AST ALT Alkaline Phosphatase Troponin I NT-Pro-B Natriuret Pep Total Protein Albumin Globulin Albumin/Globulin Ratio - EKG Data -: EKG Interpreted by Me Rate: Normal EKG Shows Normal: Sinus Rhythm - EKG Data EKG Interpretation: Nonspecific ST-T Wave Changes (Particular in V2 through V4 with some what appear to be T-wave inversions) - Imaging Status: Image Reviewed by Me (Chest x-ray, I wondered about a possible right sided or right middle lobe pneumonia with perihilar peribronchial cuffing. A CT scan of the chest, no evidence of pneumonia, but her severe emphysema with bullae. It was read as negative for pulmonary emboli.) Assessment and Plan - Patient Problems (1) Acute hypoxemic respiratory failure Current Visit: Yes Status: Acute Code(s): J96.01 - Acute respiratory failure with hypoxia (2) Pulmonary hypertension Current Visit: Yes Status: Acute Code(s): I27.20 - Pulmonary hypertension, unspecified (3) COPD exacerbation Current Visit: Yes Status: Acute Code(s): J44.1 - Chronic obstructive pulmonary disease with (acute) exacerbation (4) Bullous emphysema Current Visit: Yes Status: Acute Code(s): J43.9 - Emphysema, unspecified (5) Chronic pain syndrome Current Visit: Yes Status: Acute Code(s): G89.4 - Chronic pain syndrome (6) Tobacco abuse Current Visit: Yes Status: Acute Code(s): Z72.0 - Tobacco use (7) Hypercholesteremia Current Visit: Yes Status: Acute Code(s): E78.00 - Pure hypercholesterolemia , unspecified (8) Obstructive sleep apnea Current Visit: Yes Status: Acute Code(s): G47.33 - Obstructive sleep apnea ( adult) (pediatric) (9) Respiratory insufficiency Current Visit: Yes Status: Acute Code(s): R06.89 - Other abnormalities of breathing - Assessment / Plan Additional Assessment/Plan Details: This very complex patient with severe pulmonary hypertension, probably end-stage , and end-stage COPD with bullous emphysema, who is now admitted in acute hypoxemic respiratory failure. Although she is not acidotic, she has hypercapnic and she is very labored. Given her acute hypoxemic respiratory failure with labored breathing and respiratory distress, I feel like we should put her on BiPAP to try and give her accessory muscles and respiratory work of breathing as much of a break as we can to hopefully avoid any acute intubations. Follow-up blood gas post BiPAP initiation shows that the pH is essentially unchanged and the CO2 is also essentially unchanged but the patient is breathing easier, resting more, and is actually sleeping on the BiPAP therapy. Steroids and antibiotics. Prior to CT scan I gave steroids, and Benadryl. No evidence for pulmonary emboli but patient is high risk so I will use DVT prophylaxis. Oxygen as necessary but keep sats 89 and 91%. Pulmonary toilet with breathing therapies. I think the patient needs continued outpatient follow-up with a frit mixer and burner. Patient is full code, discussed with patient. I discussed the patient's situation with her son, Walt, , and updated him on the situation as well. I stated I make no guarantees in her overall outcome, I consider her prognosis on the guarded side, and if intubation occurs, patient would need to be transferred and I discussed that with the patient and son.
[2017-11-18] MEDS: FORMOTEROL FUMARATE 20 MCG/2 ML NEB SCH ×3 (00:40→19:16)
[2017-11-18] MEDS: TIOTROPIUM BROMIDE 18 MCG CAPSULE INH SCH ×2 (00:41→07:31)
[2017-11-18] MEDS ORDERED: LIDOCAINE HCL 2 % 10 ML JELLY URO-JECT TOPICAL PRN (01:20)
[2017-11-18] MEDS: NYSTATIN 15 GM POWDER TOPICAL SCH ×4 (01:59→20:04)
[2017-11-18] MEDS: oxyCODONE/APAP 10/325 Tab 1 EACH TAB PO SCH ×5 (05:34→21:30)
[2017-11-18] MEDS: methylPREDNISolone 125 MG/2 ML VIAL IVP SCH ×4 (05:34→23:20)
[2017-11-18 06:55] LABS: VENOUS PH 7.37 (7.32-7.42)
[2017-11-18] MEDS: FUROSEMIDE 40 MG TABLET PO SCH ×2 (07:23→14:15)
[2017-11-18] MEDS: ALBUTEROL SULFATE 2.5 MG/3 ML NEB PRN ×5 (07:29→22:45)
[2017-11-18 07:42] LABS: BASOPHILS # (AUTO) 0 10*3/UL; BASOPHILS % (AUTO) 0 % (0-1); EOSINOPHILS # (AUTO) 0 10*3/UL; EOSINOPHILS % (AUTO) 0 % (0-8); Hematocrit [HCT] 39.3 % (37.0-47.0); Hemoglobin [HGB] 11.8 g/dL (12.0-16.0); LYMPHOCYTES # (AUTO) 0.65 10*3/uL; MEAN CORPUSCULAR HEMOGLOBIN 28.6 PG (27-31); MEAN CORPUSCULAR VOLUME 95.2 FL (81-99); MEAN PLATELET VOLUME 10.4 FL (7.4-12.2); MONOCYTES # (AUTO) 0.02 10*3/UL (0.3-0.8); MONOCYTES % (AUTO) 0.5 % (5-15); NEUTROPHILS # (AUTO) 3.68 10*3/UL; NEUTROPHILS % (AUTO) 84.4 % (50-80); RED BLOOD COUNT 4.13 10^6/uL (4.20-5.40)
[2017-11-18 08:03] LABS: PLATELET MORPHOLOGY COMMENT NORMAL MORPHOLOGY (NORM); RBC MORPHOLOGY COMMENT NORMAL MORPHOLOGY (NORM); WBC MORPHOLOGY COMMENT NORMAL MORPHOLOGY (NORM)
[2017-11-18 08:09] LABS: BLOOD UREA NITROGEN 13 mg/dL (7-22); BUN/CREATININE RATIO 21.66 (6-20)
[2017-11-18] MEDS ORDERED: NYSTATIN 15 GM POWDER TOPICAL SCH (09:00)
[2017-11-18 09:08] LABS: VENOUS PH 7.37 (7.32-7.42)
[2017-11-18] MEDS: ESTROGENS,CONJUGATED 0.625 MG TABLET PO SCH (09:37)
[2017-11-18] MEDS: FLUoxetine 20 MG CAPSULE PO SCH (09:37)
[2017-11-18] MEDS: ENOXAPARIN SODIUM 40 MG/0.4 ML SYRINGE SUBCUT SCH (09:37)
[2017-11-18] MEDS: LISINOPRIL 10 MG TABLET PO SCH (09:37)
[2017-11-18] MEDS: GABAPENTIN 300 MG CAPSULE PO SCH ×3 (09:37→20:04)
[2017-11-18] MEDS: AZITHROMYCIN 250 MG TABLET PO SCH (09:37)
[2017-11-18] MEDS: POTASSIUM CHLORIDE 20 MEQ TAB PO SCH ×2 (09:38→20:04)
--- NOTE | 2017-11-18 17:40 | PDOC(PROG) ---
Date and Time of Service: 11/18/2017, 1732 Interval History: no chest pain breathing is slightly better but very short of breath off BiPaP no abdominal pain, no nausea or vomiting Objective : Data - Labs CBC and BMP: 11/18/17 06:47 11/18/17 06:47 Objective : Exam - General General Appearance: No Acute Distress, Cooperative Additional General Exam Details: Vital Signs - Last Taken Temperature 96.9 F 11/18/17 16:57 Pulse Rate 61 11/18/17 16:57 Respiratory Rate 17 11/18/17 16:57 Blood Pressure 111/52 11/18/17 16:57 Pulse Ox 90 11/18/17 16:57 - Eye Eye Exam: No Scleral Icterus - ENT ENT Exam: Mucous Membranes Moist - Respiratory Respiratory Exam: Breathing Non Labored, Wheezes, Coarse Breath Sounds - Cardiovascular Cardiovascular Exam: RRR, No Murmur, No Clicks, No Gallops, No Rubs, No JVD - GI/Abdominal GI/Abdominal Exam: Normal Bowel Sounds, Non Tender, Non Distended, Soft - Extremities Extremities Exam: No Edema Present, No Cyanosis Present, Clubbing Present - Neurological Neurological Exam: Alert, Oriented x 3, No Facial Droop, Speech Intact / Clear, Moves All Extremities Equally Assessment and Plan - Patient Problems (1) Acute hypoxemic respiratory failure Current Visit: Yes Status: Acute Code(s): J96.01 - Acute respiratory failure with hypoxia (2) Pulmonary hypertension Current Visit: Yes Status: Acute Code(s): I27.20 - Pulmonary hypertension, unspecified (3) COPD exacerbation Current Visit: Yes Status: Acute Code(s): J44.1 - Chronic obstructive pulmonary disease with (acute) exacerbation (4) Bullous emphysema Current Visit: Yes Status: Acute Code(s): J43.9 - Emphysema, unspecified (5) Chronic pain syndrome Current Visit: Yes Status: Acute Code(s): G89.4 - Chronic pain syndrome (6) Tobacco abuse Current Visit: Yes Status: Acute Code(s): Z72.0 - Tobacco use (7) Hypercholesteremia Current Visit: Yes Status: Acute Code(s): E78.00 - Pure hypercholesterolemia , unspecified (8) Obstructive sleep apnea Current Visit: Yes Status: Acute Code(s): G47.33 - Obstructive sleep apnea ( adult) (pediatric) (9) Respiratory insufficiency Current Visit: Yes Status: Acute Code(s): R06.89 - Other abnormalities of breathing - Assessment / Plan Additional Assessment/Plan Details: continue steroids, rocephin and zithromax get ECHO to re-assess pulmonary HTN I am very concerned that the patient is only marginally better. will let her take some breaks off BiPaP for meals. gases noted. I suspect this is more of her CO2 baseline. This is likely PAH, type 3, and unlikely to respond to phosphodiesterase inhibitors or other medications overall prognosis is guarded. Not currently in need of intubation, but if symptoms or signs progressed, then that may still be necessary. . . I updated the son.
[2017-11-18] MEDS: cefTRIAXone Inj 2 GM in Sodium Chloride 0.9% 100 ML IV SCH (17:51)
[2017-11-18] MEDS: Montelukast Tab 10 MG TAB PO SCH (20:04)
[2017-11-18] MEDS: NORMAL SALINE 10 ML SYRINGE FLUSH IVP PRN (23:20)
[2017-11-19] MEDS: methylPREDNISolone 125 MG/2 ML VIAL IVP SCH ×4 (04:59→22:25)
[2017-11-19] MEDS: oxyCODONE/APAP 10/325 Tab 1 EACH TAB PO SCH ×5 (04:59→21:05)
[2017-11-19] MEDS: ALBUTEROL SULFATE 2.5 MG/3 ML NEB PRN ×5 (05:08→18:11)
[2017-11-19 05:44] LABS: BASOPHILS # (AUTO) 0 10*3/UL; BASOPHILS % (AUTO) 0 % (0-1); EOSINOPHILS # (AUTO) 0 10*3/UL; EOSINOPHILS % (AUTO) 0 % (0-8); Hematocrit [HCT] 38.8 % (37.0-47.0); Hemoglobin [HGB] 11.7 g/dL (12.0-16.0); LYMPHOCYTES # (AUTO) 0.46 10*3/uL; MEAN CORPUSCULAR HEMOGLOBIN 28.5 PG (27-31); MEAN CORPUSCULAR HGB CONC 30.2 g/dL (33-37); MEAN CORPUSCULAR VOLUME 94.4 FL (81-99); MEAN PLATELET VOLUME 10.7 FL (7.4-12.2); MONOCYTES % (AUTO) 2.1 % (5-15); NEUTROPHILS # (AUTO) 8.94 10*3/UL; RED BLOOD COUNT 4.11 10^6/uL (4.20-5.40)
[2017-11-19 05:52] LABS: PLATELET MORPHOLOGY COMMENT NORMAL MORPHOLOGY (NORM); RBC MORPHOLOGY COMMENT NORMAL MORPHOLOGY (NORM); WBC MORPHOLOGY COMMENT NORMAL MORPHOLOGY (NORM)
[2017-11-19 06:02] LABS: BLOOD UREA NITROGEN 20 mg/dL (7-22); BUN/CREATININE RATIO 33.33 (6-20)
[2017-11-19] MEDS: TIOTROPIUM BROMIDE 18 MCG CAPSULE INH SCH (06:17)
[2017-11-19] MEDS: FUROSEMIDE 40 MG TABLET PO SCH ×2 (06:44→14:06)
[2017-11-19] MEDS: ENOXAPARIN SODIUM 40 MG/0.4 ML SYRINGE SUBCUT SCH (09:08)
[2017-11-19] MEDS: GABAPENTIN 300 MG CAPSULE PO SCH ×3 (09:08→21:04)
[2017-11-19] MEDS: ESTROGENS,CONJUGATED 0.625 MG TABLET PO SCH (09:08)
[2017-11-19] MEDS: FLUoxetine 20 MG CAPSULE PO SCH (09:08)
[2017-11-19] MEDS: POTASSIUM CHLORIDE 20 MEQ TAB PO SCH ×2 (09:09→21:05)
[2017-11-19] MEDS: AZITHROMYCIN 250 MG TABLET PO SCH (09:09)
[2017-11-19] MEDS: LISINOPRIL 10 MG TABLET PO SCH (09:09)
[2017-11-19] MEDS: NYSTATIN 15 GM POWDER TOPICAL SCH ×3 (09:10→21:05)
--- NOTE | 2017-11-19 09:45 | PDOC(PROG) ---
Date and Time of Service: 11/19/2017 9:47 AM Interval History: Subjective She said she feels better compared to when she came in. She came in because of cough, shortness of breath. There is some phlegm production. Yesterday they tried to take her off the BiPAP however she became short of breath and they had to put her back on it. Now she is off the BiPAP for more than 10 minutes and she seemed to be stable. She is on 10 L of oxygen though. Objective : Data - Labs CBC and BMP: 11/19/17 05:02 11/19/17 05:02 Objective : Exam - General General Appearance: No Acute Distress, Cooperative, Obese - Head Head Exam: Normal Inspection, Atraumatic - Eye Eye Exam: Normal Appearance - ENT ENT Exam: Normal Exam - Neck Neck Exam: Normal Inspection - Respiratory Additional Respiratory Exam Details: Decreased air entry, expiratory wheezes, crackles also heard - Cardiovascular Cardiovascular Exam: RRR - GI/Abdominal GI/Abdominal Exam: Normal Bowel Sounds, Non Tender, Non Distended, Soft - Rectal Rectal Exam: Deferred - External Exam: Deferred - Extremities Extremities Exam: Normal Inspection - Back Back Exam: Normal Inspection - Neurological Neurological Exam: Alert, Oriented x 3, Normal Gait, CN II-XII Intact, Speech Intact / Clear, Moves All Extremities Equally - Psychiatric Psychiatric Exam: Normal Affect Assessment and Plan - Patient Problems (1) Acute hypoxemic respiratory failure Current Visit: Yes Status: Acute Comment: This is secondary to COPD exacerbation Continue steroid and antibiotics. Continue breathing treatment. We'll try to see whether we can take her off the BiPAP during the day and just keep her on it at night Code(s): J96.01 - Acute respiratory failure with hypoxia (2) Pulmonary hypertension Current Visit: Yes Status: Acute Comment: She will have an echo today. Code(s): I27.20 - Pulmonary hypertension, unspecified (3) COPD exacerbation Current Visit: Yes Status: Acute Comment: Continue current antibiotics, steroid and bronchodilator. Code(s): J44.1 - Chronic obstructive pulmonary disease with (acute) exacerbation (4) Chronic pain syndrome Current Visit: Yes Status: Acute Comment: Continue same medications Code(s): G89.4 - Chronic pain syndrome (5) Hypercholesteremia Current Visit: Yes Status: Acute Comment: same medications Code(s): E78.00 - Pure hypercholesterolemia, unspecified (6) Obstructive sleep apnea Current Visit: Yes Status: Acute Comment: We'll try to see whether we can keep her on the BiPAP at night Code(s): G47.33 - Obstructive sleep apnea (adult) (pediatric)
[2017-11-19] MEDS: FORMOTEROL FUMARATE 20 MCG/2 ML NEB SCH (14:42)
[2017-11-19] MEDS: cefTRIAXone Inj 2 GM in Sodium Chloride 0.9% 100 ML IV SCH (17:23)
[2017-11-19] MEDS: Montelukast Tab 10 MG TAB PO SCH (21:04)
[2017-11-19] MEDS: NORMAL SALINE 10 ML SYRINGE FLUSH IVP PRN (22:25)
[2017-11-20] MEDS: FORMOTEROL FUMARATE 20 MCG/2 ML NEB SCH ×3 (04:23→21:40)
[2017-11-20] MEDS: oxyCODONE/APAP 10/325 Tab 1 EACH TAB PO SCH ×5 (05:17→21:41)
[2017-11-20] MEDS: methylPREDNISolone 125 MG/2 ML VIAL IVP SCH ×3 (05:17→21:28)
[2017-11-20 06:03] LABS: BLOOD UREA NITROGEN 25 mg/dL (7-22); BUN/CREATININE RATIO 41.66 (6-20)
[2017-11-20] MEDS: ALBUTEROL SULFATE 2.5 MG/3 ML NEB PRN ×5 (06:25→22:10)
[2017-11-20] MEDS: TIOTROPIUM BROMIDE 18 MCG CAPSULE INH SCH (06:27)
[2017-11-20] MEDS: FUROSEMIDE 40 MG TABLET PO SCH ×2 (06:55→15:00)
[2017-11-20] MEDS: LISINOPRIL 10 MG TABLET PO SCH (08:36)
[2017-11-20] MEDS: GABAPENTIN 300 MG CAPSULE PO SCH ×3 (08:36→20:46)
[2017-11-20] MEDS: NYSTATIN 15 GM POWDER TOPICAL SCH ×3 (08:36→20:47)
[2017-11-20] MEDS: FLUoxetine 20 MG CAPSULE PO SCH (08:36)
[2017-11-20] MEDS: ESTROGENS,CONJUGATED 0.625 MG TABLET PO SCH (08:36)
[2017-11-20] MEDS: POTASSIUM CHLORIDE 20 MEQ TAB PO SCH ×2 (08:36→20:46)
[2017-11-20] MEDS: AZITHROMYCIN 250 MG TABLET PO SCH (08:36)
[2017-11-20] MEDS: ENOXAPARIN SODIUM 40 MG/0.4 ML SYRINGE SUBCUT SCH (08:37)
[2017-11-20] MEDS: NORMAL SALINE 10 ML SYRINGE FLUSH IVP PRN ×2 (11:46→17:31)
--- NOTE | 2017-11-20 12:45 | PDOC(PROG) ---
Date and Time of Service: 11/20/2017 12:43 PM Interval History: Subjective Patient feels better today compared to yesterday. She said she may probably about 50% improvement in terms of her shortness of breath. She still have some cough which is minimal. No chest pain. Objective : Data - Labs CBC and BMP: 11/19/17 05:02 11/20/17 05:25 Objective : Exam - General General Appearance: No Acute Distress, Obese - Head Head Exam: Normal Inspection, Atraumatic - Eye Eye Exam: Normal Appearance - ENT ENT Exam: Normal Exam - Neck Neck Exam: Normal Inspection - Respiratory Additional Respiratory Exam Details: Decreased air entry expiratory wheezes and few crackles heard - Cardiovascular Cardiovascular Exam: RRR - GI/Abdominal GI/Abdominal Exam: Normal Bowel Sounds, Non Tender, Non Distended, Soft, No Organomegaly - Rectal Rectal Exam: Deferred - External Exam: Deferred - Extremities Extremities Exam: Normal Inspection - Back Back Exam: Normal Inspection - Neurological Neurological Exam: Alert, Oriented x 3, CN II-XII Intact, Speech Intact / Clear , Moves All Extremities Equally - Psychiatric Psychiatric Exam: Normal Affect Assessment and Plan - Patient Problems (1) Acute hypoxemic respiratory failure Current Visit: Yes Status: Acute Comment: Her oxygen needs are coming down. We were able to take her off the BiPAP during the daytime we put her on BiPAP only at night she has history of sleep apnea. I think we'll start cutting back on the steroid continue antibiotics and bronchodilators. Her respiratory failure is secondary to exacerbation of COPD. Code(s): J96.01 - Acute respiratory failure with hypoxia (2) Pulmonary hypertension Current Visit: Yes Status: Acute Comment: They cannot estimate the pressure on the echo per my discussion with the chef de cuisine the right ventricle seem to be enlarged. Code(s): I27.20 - Pulmonary hypertension, unspecified (3) COPD exacerbation Current Visit: Yes Status: Acute Comment: As I said will cut back on the steriod, continue antibiotics and bronchodilator. Code(s): J44.1 - Chronic obstructive pulmonary disease with (acute) exacerbation (4) Chronic pain syndrome Current Visit: Yes Status: Acute Comment: Same med Code(s): G89.4 - Chronic pain syndrome (5) Hypercholesteremia Current Visit: Yes Status: Acute Comment: Same med Code(s): E78.00 - Pure hypercholesterolemia, unspecified (6) Obstructive sleep apnea Current Visit: Yes Status: Acute Comment: Continue BiPAP at night Code(s): G47.33 - Obstructive sleep apnea (adult) (pediatric)
[2017-11-20] MEDS: cefTRIAXone Inj 2 GM in Sodium Chloride 0.9% 100 ML IV SCH (17:32)
[2017-11-20] MEDS: Montelukast Tab 10 MG TAB PO SCH (20:46)
[2017-11-20] MEDS: LORazepam 1 MG TABLET PO PRN (22:19)
[2017-11-21] MEDS: NORMAL SALINE 10 ML SYRINGE FLUSH IVP PRN (05:10)
[2017-11-21] MEDS: oxyCODONE/APAP 10/325 Tab 1 EACH TAB PO SCH ×5 (05:10→22:12)
[2017-11-21] MEDS: methylPREDNISolone 125 MG/2 ML VIAL IVP SCH ×2 (05:10→17:02)
[2017-11-21] MEDS: ALBUTEROL SULFATE 2.5 MG/3 ML NEB PRN ×4 (06:48→19:45)
[2017-11-21] MEDS: TIOTROPIUM BROMIDE 18 MCG CAPSULE INH SCH (06:49)
[2017-11-21] MEDS: FUROSEMIDE 40 MG TABLET PO SCH ×2 (06:54→14:05)
[2017-11-21] MEDS: FORMOTEROL FUMARATE 20 MCG/2 ML NEB SCH ×2 (07:00→19:48)
--- NOTE | 2017-11-21 08:17 | PDOC(PROG) ---
Date and Time of Service: 11/21/2017 8:13 AM Interval History: Subjective Her breathing is better she said than yesterday. Still have some cough but no significant phlegm production. She said she had some heartburn yesterday and she got some Tums and that helped. She lives she said in a trailer with her brother. He doesn't go out much she said because of her shortness of breath. Objective : Data - Labs CBC and BMP: 11/19/17 05:02 11/20/17 05:25 Objective : Exam - General General Appearance: No Acute Distress, Cooperative, Obese - Head Head Exam: Normal Inspection, Atraumatic - Eye Eye Exam: Normal Appearance - ENT ENT Exam: Normal Exam - Neck Neck Exam: Normal Inspection - Respiratory Additional Respiratory Exam Details: Decreased air entry still expiratory wheeze and some crackles. But I think they 're less than yesterday. - Cardiovascular Cardiovascular Exam: RRR - GI/Abdominal GI/Abdominal Exam: Normal Bowel Sounds, Non Tender, Non Distended, Soft, No Organomegaly - Rectal Rectal Exam: Deferred - External Exam: Deferred Exam: Deferred - Extremities Extremities Exam: Normal Inspection - Back Back Exam: Normal Inspection - Neurological Neurological Exam: Alert, Oriented x 3, CN II-XII Intact, Speech Intact / Clear , Moves All Extremities Equally - Psychiatric Psychiatric Exam: Normal Affect Assessment and Plan - Patient Problems (1) Acute hypoxemic respiratory failure Current Visit: Yes Status: Acute Comment: This is secondary to COPD exacerbation. This is improving she is more close to being back to her baseline. We'll cut back more on the steroid today. Continue antibiotics. Code(s): J96.01 - Acute respiratory failure with hypoxia (2) Pulmonary hypertension Current Visit: Yes Status: Acute Comment: Continue diuretics. Code(s): I27.20 - Pulmonary hypertension, unspecified (3) COPD exacerbation Current Visit: Yes Status: Acute Comment: Continue steroid at a lower dosage, continue antibiotics and bronchodilator. Code(s): J44.1 - Chronic obstructive pulmonary disease with (acute) exacerbation (4) Chronic pain syndrome Current Visit: Yes Status: Acute Comment: Same med Code(s): G89.4 - Chronic pain syndrome (5) Hypercholesteremia Current Visit: Yes Status: Acute Comment: Same med Code(s): E78.00 - Pure hypercholesterolemia, unspecified (6) Obstructive sleep apnea Current Visit: Yes Status: Acute Comment: Continue BiPAP at night Code(s): G47.33 - Obstructive sleep apnea (adult) (pediatric)
[2017-11-21] MEDS: FLUoxetine 20 MG CAPSULE PO SCH (08:22)
[2017-11-21] MEDS: NYSTATIN 15 GM POWDER TOPICAL SCH ×3 (08:22→22:02)
[2017-11-21] MEDS: ENOXAPARIN SODIUM 40 MG/0.4 ML SYRINGE SUBCUT SCH (08:22)
[2017-11-21] MEDS: ESTROGENS,CONJUGATED 0.625 MG TABLET PO SCH (08:22)
[2017-11-21] MEDS: AZITHROMYCIN 250 MG TABLET PO SCH (08:22)
[2017-11-21] MEDS: LISINOPRIL 10 MG TABLET PO SCH (08:22)
[2017-11-21] MEDS: POTASSIUM CHLORIDE 20 MEQ TAB PO SCH ×2 (08:22→21:33)
[2017-11-21] MEDS: GABAPENTIN 300 MG CAPSULE PO SCH ×3 (08:22→21:33)
[2017-11-21] MEDS: cefTRIAXone Inj 2 GM in Sodium Chloride 0.9% 100 ML IV SCH (17:03)
[2017-11-21] MEDS: Montelukast Tab 10 MG TAB PO SCH (21:33)
[2017-11-22] MEDS: methylPREDNISolone 125 MG/2 ML VIAL IVP SCH ×2 (04:21→16:51)
[2017-11-22] MEDS: NORMAL SALINE 10 ML SYRINGE FLUSH IVP PRN ×2 (04:21→16:52)
[2017-11-22] MEDS: ALBUTEROL SULFATE 2.5 MG/3 ML NEB PRN ×5 (06:57→21:55)
[2017-11-22] MEDS: TIOTROPIUM BROMIDE 18 MCG CAPSULE INH SCH (06:58)
[2017-11-22] MEDS: FORMOTEROL FUMARATE 20 MCG/2 ML NEB SCH ×2 (07:01→20:12)
[2017-11-22] MEDS: oxyCODONE/APAP 10/325 Tab 1 EACH TAB PO SCH ×5 (07:23→22:08)
[2017-11-22] MEDS: FUROSEMIDE 40 MG TABLET PO SCH ×2 (07:23→14:21)
--- NOTE | 2017-11-22 08:14 | PDOC(PROG) ---
Date and Time of Service: 11/22/2017 8:18 AM Interval History: Subjective She said she feels better than yesterday. She is coughing and some green stuff coming up. No other symptoms. Objective : Data - Labs CBC and BMP: 11/19/17 05:02 11/20/17 05:25 Objective : Exam - General General Appearance: No Acute Distress, Cooperative, Obese - Head Head Exam: Normal Inspection, Atraumatic - Eye Eye Exam: Normal Appearance - ENT ENT Exam: Normal Exam - Neck Neck Exam: Normal Inspection - Respiratory Additional Respiratory Exam Details: There is decreased air entry with bilateral wheezing. - Cardiovascular Cardiovascular Exam: RRR - GI/Abdominal GI/Abdominal Exam: Normal Bowel Sounds, Non Tender, Non Distended, Soft, No Organomegaly - Rectal Rectal Exam: Deferred - External Exam: Deferred Exam: Deferred - Extremities Extremities Exam: Normal Inspection - Back Back Exam: Normal Inspection - Neurological Neurological Exam: Alert, Oriented x 3, Normal Gait, CN II-XII Intact, Speech Intact / Clear, Moves All Extremities Equally - Psychiatric Psychiatric Exam: Normal Affect - Integumentary Integumentary Exam: Normal Color Assessment and Plan - Patient Problems (1) Acute hypoxemic respiratory failure Current Visit: Yes Status: Acute Comment: She is close to being back in terms of her oxygen need to her baseline. The respirtaory failure is secondary to COPD exacerbation. Code(s): J96.01 - Acute respiratory failure with hypoxia (2) Pulmonary hypertension Current Visit: Yes Status: Acute Comment: Continue diuretics. Code(s): I27.20 - Pulmonary hypertension, unspecified (3) COPD exacerbation Current Visit: Yes Status: Acute Comment: Continue steroid, antibiotics and bronchodilator. She continue to wheeze I think will keep the steroid at the current dosage. Code(s): J44.1 - Chronic obstructive pulmonary disease with (acute) exacerbation (4) Chronic pain syndrome Current Visit: Yes Status: Acute Comment: Continue same medications Code(s): G89.4 - Chronic pain syndrome (5) Hypercholesteremia Current Visit: Yes Status: Acute Comment: Same med. I did tell her that CT showed calcification the coronary arteries at one point in time, when she recovere from this illness she need to have a stress test as an outpatient. Code(s): E78.00 - Pure hypercholesterolemia, unspecified (6) Obstructive sleep apnea Current Visit: Yes Status: Acute Comment: She said she doesn't like the BiPAP I did tell her to bring her CPAP machine and try the CPAP tonight. Code(s): G47.33 - Obstructive sleep apnea (adult) (pediatric)
[2017-11-22] MEDS: LISINOPRIL 10 MG TABLET PO SCH (08:31)
[2017-11-22] MEDS: GABAPENTIN 300 MG CAPSULE PO SCH ×3 (08:31→21:21)
[2017-11-22] MEDS: POTASSIUM CHLORIDE 20 MEQ TAB PO SCH ×2 (08:32→20:03)
[2017-11-22] MEDS: AZITHROMYCIN 250 MG TABLET PO SCH (08:32)
[2017-11-22] MEDS: ENOXAPARIN SODIUM 40 MG/0.4 ML SYRINGE SUBCUT SCH (08:32)
[2017-11-22] MEDS: ESTROGENS,CONJUGATED 0.625 MG TABLET PO SCH (08:32)
[2017-11-22] MEDS: FLUoxetine 20 MG CAPSULE PO SCH (08:32)
[2017-11-22] MEDS: NYSTATIN 15 GM POWDER TOPICAL SCH ×3 (08:37→21:21)
[2017-11-22] MEDS: cefTRIAXone Inj 2 GM in Sodium Chloride 0.9% 100 ML IV SCH (16:52)
[2017-11-22] MEDS: Montelukast Tab 10 MG TAB PO SCH (20:03)
[2017-11-22] MEDS: LORazepam 1 MG TABLET PO PRN (20:04)
[2017-11-23] MEDS: methylPREDNISolone 125 MG/2 ML VIAL IVP SCH (04:49)
[2017-11-23] MEDS: oxyCODONE/APAP 10/325 Tab 1 EACH TAB PO SCH (06:35)
[2017-11-23] MEDS: FUROSEMIDE 40 MG TABLET PO SCH (06:36)
[2017-11-23 06:49] VITALS: RESP 20
[2017-11-23] MEDS: ALBUTEROL SULFATE 2.5 MG/3 ML NEB PRN (06:49)
[2017-11-23] MEDS: TIOTROPIUM BROMIDE 18 MCG CAPSULE INH SCH (06:51)
--- NOTE | 2017-11-23 08:18 | DCSUMMARY ---
Hospitalization Summary Admit Date: 11/23/2017 Discharge Date: 11/23/17 Hospital Course: Discharge diagnoses 1. Acute on chronic respiratory failure improved 2. COPD 4 L of oxygen 3. Pulmonary hypertension 4. Chronic pain syndrome 5. Hypercholesterolemia 6. GERD with Clark esophagitis 7. Obstructive sleep apnea 8. Tracheobronchomalacia Hospital course This is a 57 years old the female with medical history significant for COPD on oxygen, obstructive sleep apnea, history of tracheobronchomalacia who continued to smoke, who came into the hospital because of shortness of breath. In addition to the shortness of breath she had cough. When she came in she was found to be in COPD exacerbation she was given breathing treatment and she was admitted. A CT of the chest was negative for PE but showed evidence of severe pulmonary hypertension. She was admitted to the hospital by Dr. Betancur please see his note. Patient was found to be in acute on chronic respiratory failure secondary to COPD exacerbation. She was put on steroid antibiotics and breathing treatment. Initially her breathing was very labored and she needed to be on the BiPAP. Gradually there was slow response and I saw her later on during her hospital stay we were able to take him off the BiPAP during the daytime and we continued with that at nighttime. We started to cut back on the dosage of the steroid gradually. We continued with antibiotic and bronchodilator treatment. She did have an echo which showed right ventricular enlargement. Her ejection fraction was about the 55-60%. There was evidence of for volume pressure overload in the right ventricle. We continued with her diuretics. Gradually as I said she started to improve and on the day of discharge she was doing better and was ready to go home she is on 5 L of oxygen which is close to her usual baseline she will be discharged home on slow taper of steroid and also a few days of Zithromax and to continue bronchodilator treatment. I warned her against smoking again. She continued to have some sounds in her chest these much improved compared to when first I examined her. She has a history of tracheobronchomalacia so I think part of the sounds that we here and her chest may be a result of that. Clinically however she felt much improved and her oxygen need improved down to 5 L minutes and this is very close to her baseline. Her mobility did also improve while she is here. She will follow-up with Dr. Claudio as an outpatient Discharge structure Diet regular Activity as started Medications Current Medication(s) 3 Medication Instructions Recorded Confirmed Type Albuterol Sulfate 1 vial NEB QID #360 vial 12/10/16 11/17/17 Rx Albuterol Sulfate [Proair Hfa] 1 - 2 inh INH QID PRN #3 ea 12/10/16 11/17/17 History Formoterol Fumarate [PERFOROMIST] 1 vial NEB BID #180 vial 12/10/16 11/17/17 Rx lorazepam 1 mg tablet 1 mg PO TID PRN #90 tab 08/07/17 11/17/17 Rx ibuprofen 800 mg tablet 800 mg PO TID #90 tab 08/20/17 11/17/17 Rx conjugated estrogens 0.625 mg 0.625 mg PO QDAY #90 tab 10/05/17 11/17/17 Rx tablet fluoxetine 40 mg capsule 40 mg PO QDAY #90 cap 10/05/17 11/17/17 Rx fluticasone 250 mcg-salmeterol 50 1 inh INH Q12H 10/05/17 11/17/17 History mcg/dose blistr powdr for inhalation furosemide 80 mg tablet 80 mg PO BID #180 tab 10/05/17 11/17/17 Rx gabapentin 300 mg capsule 300 mg PO TID #270 cap 10/05/17 11/17/17 Rx lisinopril 10 mg tablet 10 mg PO QDAY #90 tab 10/05/17 11/17/17 Rx montelukast 10 mg tablet 10 mg PO QHS #90 tab 10/05/17 11/17/17 Rx oxycodone-acetaminophen 10 mg-325 1 tab PO 5XD #150 tab 10/05/17 11/17/17 Rx mg tablet potassium chloride ER 20 mEq 20 meq PO BID #180 tab 10/05/17 11/17/17 Rx tablet,extended release(part/cryst) simvastatin 40 mg tablet 40 mg PO QHS PRN #90 tab 10/05/17 11/17/17 History tiotropium bromide 18 mcg capsule 1 cap INH QDAY 10/05/17 11/17/17 History with inhalation device Azithromycin [Zithromax] 250 mg PO DAILY #4 tab 11/23/17 Rx Prednisone 10 mg PO DAILY #30 tab 11/23/17 Rx Follow-up with her PCP in 1-2 weeks Condition at discharge stable for discharge Exam - Vitals Vital Signs: Vital Signs Temperature 98.3 F Temperature Source Temporal Artery Scan Pulse Rate [Telemetry] 64 Pulse Rate [Pulse Oximeter] 57 Pulse Rate [Pulse Oximeter 69 Bilateral Radial] Pulse Rate 54 Respiratory Rate 20 Blood Pressure [Right Arm] 123/72 Blood Pressure [Left Arm] 109/55 Pulse Ox 96 Oxygen Flow Rate 5 Oxygen Delivery Method Nasal Cannula Height 5 ft 3 in Weight 211 lb 9.6 oz - General General Appearance: No Acute Distress, Cooperative, Obese - Head Head Exam: Normal Inspection - Eye Eye Exam: POSITIVE: Normal Appearance - ENT ENT Exam: POSITIVE: Normal Exam - Neck Neck Exam: Normal Inspection - Respiratory Additional Respiratory Exam Details: Decreased air entry some expiratory wheezes. Crackles are less than before. - Cardiovascular Cardiovascular Exam: POSITIVE: RRR - GI/Abdominal GI/Abdominal Exam: POSITIVE: Normal Bowel Sounds, Non Tender, Non Distended, Soft, No Organomegaly - Rectal Rectal Exam: POSITIVE: Deferred - External Exam: POSITIVE: Deferred - Extremities Extremities Exam: POSITIVE: Normal Inspection - Back Back Exam: POSITIVE: Normal Inspection - Neurological Neurological Exam: POSITIVE: Alert, Oriented x 3, CN II-XII Intact, Moves All Extremities Equally - Psychiatric Psychiatric Exam: POSITIVE: Normal Affect - Integumentary Integumentary Exam: POSITIVE: Normal Color Patient Problems - Patient Problem List (1) Acute hypoxemic respiratory failure Status: Acute Code(s): J96.01 - Acute respiratory failure with hypoxia Category: Medical (2) Pulmonary hypertension Status: Acute Code(s): I27.20 - Pulmonary hypertension, unspecified Category : Medical (3) COPD exacerbation Status: Acute Code(s): J44.1 - Chronic obstructive pulmonary disease with ( acute) exacerbation Category: Medical (4) Chronic pain syndrome Status: Acute Code(s): G89.4 - Chronic pain syndrome Category: Medical (5) Hypercholesteremia Status: Acute Code(s): E78.00 - Pure hypercholesterolemia, unspecified Category: Medical (6) Obstructive sleep apnea Status: Acute Code(s): G47.33 - Obstructive sleep apnea (adult) (pediatric) Category: Medical
[2017-11-23 08:27] VITALS: BP 106/67; TEMP 97.9; O2SAT 91
[2017-11-23] MEDS: ENOXAPARIN SODIUM 40 MG/0.4 ML SYRINGE SUBCUT SCH (08:48)
[2017-11-23] MEDS: LISINOPRIL 10 MG TABLET PO SCH (08:48)
[2017-11-23] MEDS: GABAPENTIN 300 MG CAPSULE PO SCH (08:48)
[2017-11-23] MEDS: POTASSIUM CHLORIDE 20 MEQ TAB PO SCH (08:48)
[2017-11-23] MEDS: AZITHROMYCIN 250 MG TABLET PO SCH (08:49)
[2017-11-23] MEDS: FLUoxetine 20 MG CAPSULE PO SCH (08:49)
[2017-11-23] MEDS: ESTROGENS,CONJUGATED 0.625 MG TABLET PO SCH (08:49)
[2017-11-23] MEDS ORDERED: Simvastatin Tab 40 MG TAB PO SCH (21:00)
== END 2017-11-23 09:00 | disposition home or self-care (01) | DRG 189 ==
LOC: ER 13:14 → MED/SURG 16:08
PROVIDERS: ADMIT Family Medicine; ATTEND Family Medicine